=== PATIENT | male | born 1995 | race Caucasian/White ===

== ENCOUNTER 2017-04-25 15:08 | Emergency (ER) | payer OTHER ==
[~2017-04-25] VITALS: Ht 188 cm; Wt 85.8 kg
[2017-04-25] MEDS ORDERED: SING10TA32 PO (15:20)
--- NOTE | 2017-04-25 16:12 | REP ---
Chest two views HISTORY: Chest pain Comparison: 06/27/2016 The lungs are clear. The heart is normal in size. The pulmonary vasculature is normal in appearance. The bony structure is intact. IMPRESSION: No acute disease. Signed by Luis Henderson MD 04/25/2017 04:03 P
[2017-04-25 16:35] LABS: BASO % 0.7 % (0.0-1.0); EOS # 0.2 K/mm3 (0.0-0.50); EOS % 4.3 % (0.0-3.0); LARGE UNSTAINED CELL # 0.1 K/mm3 (0.0-0.4); LARGE UNSTAINED CELL % 1.6 % (0.0-4.0); LYMPH # 1.4 K/mm3 (1.5-6.5); MEAN CORPUSCULAR HEMOGLOBIN 31.8 pg (27.0-33.0); MEAN CORPUSCULAR VOLUME 90.8 fl (80.0-96.0); MONO # 0.5 K/mm3 (0.0-0.8); MONO % 8.5 % (0.0-5.0); NEUTROPHILS # 3.4 K/mm3 (1.8-7.7); NEUTROPHILS % 60.9 % (36.0-66.0); PLATELET COUNT, AUTOMATED 140 k/mm3 (150-450); RED CELL DISTRIBUTION WIDTH 12.8 % (11.5-14.5); WHITE BLOOD COUNT 5.6 K/mm3 (4.0-10.0)
[2017-04-25 16:54] LABS: ERYTHROCYTE SEDIMENTATION RATE 1 mm/hr (0-15)
[2017-04-25 16:59] LABS: ANION GAP 6 MEQ/L (8-16); BLOOD UREA NITROGEN 14 MG/DL (7-18); CALCIUM LEVEL 8.9 MG/DL (8.5-10.1); CARBON DIOXIDE LEVEL 29 MEQ/L (21-32); CHLORIDE LEVEL 105 MEQ/L (98-107); CREATININE FOR GFR 1.03 MG/DL (0.70-1.30); GLOMERULAR FILTRATION RATE > 60.0 (>60); GLUCOSE, FASTING 87 MG/DL (70-105); POTASSIUM SERUM 4.3 MEQ/L (3.5-5.1); SODIUM LEVEL 140 MEQ/L (136-145)
[2017-04-25 17:54] VITALS: BP 129/58
--- NOTE | 2017-04-26 21:26 | ECGEPIP ---
Stationary ECG Study [facility] - ED Test Date: 2017-04-25 Pat Name: NABILA KOHLER Department: Room: - Gender: M Grades 9 12 Tutor: alyssa : 1995 Requested By: Flex Landeros Order Number: [id number] Reading MD: Paola Elliott Measurements Intervals [place] Rate: 71 P: 58 MA: 175 QRS: 61 QRSD: 109 T: 62 QT: 384 QTc: 420 Interpretive Statements SINUS RHYTHM WITH SINUS ARRHYTHMIA SIMILAR 06/27/16 Electronically Signed On 04-26-2017 21:26:24 EDT by Paola Elliott
== END 2017-04-25 18:07 | disposition home or self-care (01) ==
LOC: M ED 15:08
DX: R07.89 Other chest pain (principal); F17.210 Nicotine dependence, cigarettes, uncomplicated; Z88.1 Allergy status to other antibiotic agents

== ENCOUNTER → 2018-03-11 | Outpatient (CLI) | payer OTHER ==
[2018-03-11 13:59] LABS: ANION GAP 8 MEQ/L (8-16); BLOOD UREA NITROGEN 15 MG/DL (7-18); CALCIUM LEVEL 9.1 MG/DL (8.5-10.1); CARBON DIOXIDE LEVEL 28 MEQ/L (21-32); CHLORIDE LEVEL 106 MEQ/L (98-107); CREATININE FOR GFR 0.81 MG/DL (0.70-1.30); GLOMERULAR FILTRATION RATE > 60.0 (>60); GLUCOSE, FASTING 90 MG/DL (70-100); MAGNESIUM LEVEL 2.1 MG/DL (1.8-2.4); POTASSIUM SERUM 4.3 MEQ/L (3.5-5.1); SODIUM LEVEL 142 MEQ/L (136-145)
== END ==
LOC: M LAB 12:29
DX: Z82.49 Family history of ischemic heart disease and other diseases of the circulatory system (principal)
CPT/HCPCS: 83735

== ENCOUNTER 2018-10-29 18:59 | Emergency (ER) | payer OTHER ==
[~2018-10-29] VITALS: Ht 188 cm; Wt 81.8 kg
[~2018-10-29 18:59] MED LIST: SING10TA32 PO
[2018-10-29] MEDS ORDERED: BISO5TAB5 (19:06)
[2018-10-29] MEDS ORDERED: SERT-138 (19:06)
[2018-10-29] MEDS ORDERED: IBUPROFEN 600 MG TAB PO ONE (23:00)
[2018-10-29] MEDS ORDERED: METHOCARBAMOL 750 MG TAB PO ONE (23:00)
--- NOTE | 2018-10-30 00:21 | REPVR ---
EXAM: CT Abdomen and Pelvis Without Contrast EXAM DATE/TIME: 10/29/2018 11:03 PM CLINICAL HISTORY: 23 years old, male; Pain; Abdominal pain; Flank; Right; Additional info: R flank pain, fam HX stones TECHNIQUE: Axial computed tomography images of the abdomen and pelvis without contrast. All CT scans at this facility use at least one of these dose optimization techniques: automated exposure control; mA and/or kV adjustment per patient size (includes targeted exams where dose is matched to clinical indication); or iterative reconstruction. Coronal and sagittal reformatted images were created and reviewed. COMPARISON: CT ABD PELVIS WITH CONTRAST 03/27/2016 2:17 AM Study limitations: Evaluation for mass, inflammatory change, including bowel wall/fold thickening, viscera, and vasculature, is suboptimal without contrast. The uppermost aspect of the left peritoneal cavity is not entirely included. FINDINGS: LUNG BASES: No infiltrate or effusion. VASCULAR: A pacer lead is noted within the right heart. This is new compared to the prior exam. No abdominal aortic aneurysm or retroperitoneal hematoma. PERITONEAL : No free air or free fluid. GI: No hiatal hernia. The stomach contains some fluid and gas. The stomach is not sufficiently distended to evaluate wall thickening or exclude fold thickening on this exam. No appearance of bowel obstruction. There is no focal mesenteric inflammatory stranding. Small nonspecific mesenteric lymph nodes are seen. Scattered fecal material and gas slightly distending portions of the colon and rectum. This could be correlated for possibility of mild constipation. No pericolonic inflammatory stranding. No evidence of acute diverticulitis. The appendix does not appear inflamed. HEPATOBILIARY, PANCREAS, SPLEEN: Sagittal hepatic length is 17.7 cm. Hepatic attenuation is within normal limits. No calcified gallstones. No pancreatic inflammation. Spleen not enlarged. ADRENALS, KIDNEYS, BLADDER, RETROPERITONEAL: Adrenals within normal limits. No hydronephrosis. No perinephric stranding or fluid. Punctate nonobstructive left mid pole renal calculus noted. No ureteral calculi are seen. No calculi within the urinary bladder. No perivesical stranding. No bladder wall thickening. MUSCULOSKELETAL: Mild posterior disc bulging at the lumbosacral junction. IMPRESSION: Punctate nonobstructing left midpole renal calculus. No hydronephrosis or obstructive calculi. Nonspecific gastrointestinal findings as discussed above. Other incidental findings discussed above. Electronically signed by: Jorge Wright On 10/30/2018 00:21:12 AM
[2018-10-30] MEDS ORDERED: MAGNESIUM CITRATE 300 ML BTL PO ONE (00:30)
[2018-10-30] MEDS ORDERED: ROBA500T PO (00:33)
[2018-10-30] MEDS ORDERED: NAPR-50 PO (00:33)
[2018-10-30 00:53] VITALS: BP 140/88
== END 2018-10-30 00:54 | disposition home or self-care (01) ==
LOC: M ED 18:59
DX: M51.26 Other intervertebral disc displacement, lumbar region (principal); K59.00 Constipation, unspecified; Z88.1 Allergy status to other antibiotic agents; Z88.8 Allergy status to other drugs, medicaments and biological substances; F17.210 Nicotine dependence, cigarettes, uncomplicated

== ENCOUNTER → 2019-06-04 | Outpatient (REF) | payer OTHER ==
[~2019-06-04] MED LIST changes: +BISO5TAB9; +NAPR-837 PO; +ROBA500T PO; +SERT-138
== END ==
LOC: M LAB REF 14:00
PROVIDERS: ATTEND Physician Assistant Medical
DX: J02.9 Acute pharyngitis, unspecified (principal)

== ENCOUNTER → 2020-03-05 | Outpatient (CLI) | payer OTHER ==
[~2020-03-05] MED LIST changes: +BISO5TAB14; -BISO5TAB9
== END ==
LOC: M LABSMTC 12:42
PROVIDERS: ATTEND Family Medicine
DX: Z11.59 Encounter for screening for other viral diseases (principal); Z03.818 Encounter for observation for suspected exposure to other biological agents ruled out
CPT/HCPCS: C9803; U0003

== ENCOUNTER → 2021-08-05 | Outpatient (REF) | payer OTHER ==
[2021-08-05 14:31] LABS: BLOOD UREA NITROGEN 17 MG/DL (7-18); CARBON DIOXIDE LEVEL 26 MEQ/L (21-32); CHLORIDE LEVEL 105 MEQ/L (98-107); CREATININE FOR GFR 0.84 MG/DL (0.70-1.30); GLOMERULAR FILTRATION RATE > 60.0 (>60); GLUCOSE, FASTING 116 MG/DL (70-100); MAGNESIUM LEVEL 2.2 MG/DL (1.8-2.4); POTASSIUM SERUM 4.3 MEQ/L (3.5-5.1); SODIUM LEVEL 138 MEQ/L (136-145)
== END ==
LOC: M LABDRWAD 13:20
PROVIDERS: ATTEND Physician Assistant
DX: Z82.49 Family history of ischemic heart disease and other diseases of the circulatory system (principal)

== ENCOUNTER → 2022-10-13 | Outpatient (REF) | payer OTHER ==
[2022-10-13 17:23] LABS: MAGNESIUM LEVEL 1.9 MG/DL (1.8-2.4)
[2022-10-13 17:24] LABS: BLOOD UREA NITROGEN 11 MG/DL (9-23); CALCIUM LEVEL 9.1 MG/DL (8.5-10.1); CARBON DIOXIDE LEVEL 27 MMOL/L (20-31); CHLORIDE LEVEL 104 MMOL/L (98-107); CREATININE FOR GFR 0.73 MG/DL (0.70-1.30); GLOMERULAR FILTRATION RATE > 60.0 (>60); GLUCOSE, FASTING 75 MG/DL (60-100); POTASSIUM SERUM 4.1 MMOL/L (3.5-5.1); SODIUM LEVEL 139 MMOL/L (136-145)
== END ==
LOC: M LABDRWAD 16:04
PROVIDERS: ATTEND Physician Assistant
DX: Z13.79 Encounter for other screening for genetic and chromosomal anomalies (principal); Z82.49 Family history of ischemic heart disease and other diseases of the circulatory system

== ENCOUNTER → 2025-01-20 | Outpatient (CLI) | payer OTHER ==
[~2025-01-20] MED LIST changes: +BACT800T5 PO; +FAMO40TA3; +MONT-5 PO; +MONT10TA97; +SERT50TA29; -SING10TA32 PO
[2025-01-20 14:44] LABS: BLOOD UREA NITROGEN 14 MG/DL (9-23); CARBON DIOXIDE LEVEL 29 MMOL/L (20-31); CHLORIDE LEVEL 106 MMOL/L (98-107); CREATININE FOR GFR 0.76 MG/DL (0.70-1.30); GLOMERULAR FILTRATION RATE > 90.0 (>60); GLUCOSE, FASTING 87 MG/DL (60-100); HEMATOCRIT 43.3 % (42.0-52.0); HEMOGLOBIN 14.1 g/dl (13.5-17.5); MEAN CORPUSCULAR HEMOGLOBIN 30.9 pg (27.0-33.0); MEAN CORPUSCULAR HGB CONC 32.6 g/dl (32.0-36.5); MEAN CORPUSCULAR VOLUME 94.7 fl (80.0-96.0); PLATELET COUNT, AUTOMATED 222 10^3/uL (150-450); POTASSIUM SERUM 4.5 MMOL/L (3.5-5.1); RED BLOOD COUNT 4.57 10^6/uL (4.30-6.10); SODIUM LEVEL 141 MMOL/L (136-145); WHITE BLOOD COUNT 6.1 10^3/uL (4.0-10.0)
== END ==
LOC: M ADAMS 07:44
PROVIDERS: ATTEND Physician Assistant
DX: Z82.49 Family history of ischemic heart disease and other diseases of the circulatory system (principal)